=== PATIENT | female | born 1930 | race Caucasian/White ===

== ENCOUNTER 2017-01-09 14:28 | Inpatient (IN) | payer MEDICARE, OTHER ==
--- NOTE | ~2017-01-09 | OR ---
Unit #: [id number] #: [id number] Patient: CHUCKIE VICTORIA [id number] [address] [place], [place] [address] [id number] I MR#: [id number] NAME: CHUCKIE VICTORIA ROOM: [facility] Date of Procedure: 01/12/2017 Admission Date: 01/09/2017 Surgeon: Reinier Calderon M.D. : 1930 Attending Physician: Du Salazar M.D. OPERATIVE REPORT PREOPERATIVE DIAGNOSIS Need for nutritional support. POSTOPERATIVE DIAGNOSIS Need for nutritional support. PROCEDURE PERFORMED 1. Esophagogastroduodenoscopy. 2. Placement of percutaneous endoscopic gastrostomy tube. ANESTHESIA Monitored anesthesia care. FINDINGS The PEG was placed in good position. A small hiatal hernia was seen. SPECIMEN SENT TO PATH None. COMPLICATIONS None apparent. CONDITION The patient tolerated the procedure well. INDICATIONS FOR PROCEDURE The patient is an 86-year-old white female with dementia and sepsis, who presents at this time with the need for nutritional support and bypass feeds. DESCRIPTION OF PROCEDURE After obtaining informed consent from the patient's son and niece with all risks and benefits were fully explained to the patient's family in detail. The patient who was on scheduled antibiotics had monitored anesthesia care obtained. The endoscope was placed through the mouth into the upper esophagus under direct vision. It was advanced to the second portion of the duodenum without difficulty with the lumen always in view. The duodenum was normal as was the duodenal bulb. The pylorus opened normally. There was some mild gastritis in the distal stomach. On retroflexion back to the GE junction, there was a small to medium size hiatal hernia. No other abnormalities were seen. The light of the scope Unit #: [id number] #: [id number] Patient: CHUCKIE VICTORIA was easily seen in the epigastric area. On palpation of that area, the digital depression was seen easily within the gastric lumen. The area that was chosen where the abdominal wall and gastric wall were touching, was prepped in a sterile fashion. It was then anesthetized with 1% Xylocaine plain local anesthesia. A small stab incision was made with a knife and a 16-gauge thin-walled needle was placed through the abdominal wall and the gastric wall into the gastric lumen. A guidewire was threaded and was grasped with snare and pulled out through the mouth with the endoscope. The PEG tube was placed over the guidewire and passed down over the guidewire and out through the abdominal wall and pulled up until the internal bolster mendez against the gastric mucosa. An external bolster was placed as well. The endoscope was placed back down into the upper esophagus under direct vision and advanced this into the stomach. The PEG was in good position. There was good hemostasis. The external bolster was placed, there was approximately a quarter inch to half inch of slack between the two, so there would not be ischemic necrosis. On pulling back above the GE junction, there was no abnormality seen at the GE junction, and the remaining portion of the esophagus was within normal limits. Laryngeal structures were not well visualized from above. The patient tolerated the procedure well. Antibiotic ointment was placed around the PEG site, dry dressing, and an abdominal binder. Dictated by... Kai Lim/ulises TD: 01/13/2017 02:50 JOB #: [id number] CC: [facility] OPERATIVE REPORT X Reinier Calderon MD X PROCEDURE OPERATIVE NOTE
--- NOTE | ~2017-01-09 | CR72 ---
[facility] A Service of [facility] & [facility] RADIOLOGY TEXT RESULTS PATIENT: CHUCKIE VICTORIA [facility]-20 : 31 UNIT #: [id number] AGE: [address]: ESTELA PAREKH MD SEX: F ORDER DR: [id number] [facility] [address] [place], [place] [address] [id number] I MR#: [id number] Acc #: [id number] NAME: CHUCKIE VICTORIA : 1930 SEX: F STUDY DATE/TIME: 01/09/2017 14:54 UNIT: CEDOF ROOM: 71189 STUDY DESCRIPTION: CR Chest Single View Portable Attending Physician: Estela Parekh M.D. Ordering Physician: Osman Young D.O. Primary Care Physician: Primary Care Physician No MEDICAL IMAGING REPORT This report is preliminary unless electronic signature is present EXAM Portable chest HISTORY Pneumonia and shortness of air and cough today. FINDINGS The cardiac size and pulmonary vascularity are normal. No infiltrates or effusions. Low lung volumes. Multiple surgical clips in the upper abdomen. Small, calcified mediastinal nodes. IMPRESSION No acute findings and no active disease. Dictated by... Santos Valverde M.D. THIS IS AN ELECTRONICALLY VERIFIED REPORT Santos Valverde M.D. at 01/09/2017 10:50 PM DFL/psc TD: 01/09/2017 20:28 JOB #: [id number] MEDICAL IMAGING REPORT COPY
--- NOTE | ~2017-01-09 | CR72 ---
[facility] A Service of [facility] & [facility] RADIOLOGY TEXT RESULTS PATIENT: CHUCKIE VICTORIA LOCATION: [address]-20 : 31 UNIT #: [id number] AGE: [address]: Du Salazar MD SEX: F ORDER DR: [id number] [facility] [address] [place], [place] [address] [id number] I MR#: [id number] Acc #: [id number] NAME: CHUCKIE VICTORIA : 1930 SEX: F STUDY DATE/TIME: 01/10/2017 4:05 UNIT: [facility] ROOM: [facility] STUDY DESCRIPTION: CR Chest Single View Portable Attending Physician: Sunni Parekh M.D. Ordering Physician: Jessica Quinonez M.D. Primary Care Physician: Primary Care Physician No MEDICAL IMAGING REPORT This report is preliminary unless electronic signature is present EXAM Portable chest 01/10/2017 HISTORY Chest pain, hypotension, hypothermia, sepsis and pneumonia. Symptoms since 01/09/2017. Benign essential hypertension. FINDINGS The heart is enlarged but stable compared with 01/09/2017. There is poor inspiratory result with bibasilar atelectasis. There are no pleural effusions. No pneumothorax. Numerous surgical clips are seen in the upper abdomen. IMPRESSION No active pulmonary disease. Dictated by... Gil Caputo M.D. THIS IS AN ELECTRONICALLY VERIFIED REPORT Gil Caputo M.D. at 01/10/2017 10:17 PM LEVI/monika TD: 01/10/2017 06:32 JOB #: [id number] MEDICAL IMAGING REPORT COPY
--- NOTE | ~2017-01-09 | US140 ---
[facility] A Service of [facility] & [facility] RADIOLOGY TEXT RESULTS PATIENT: CHUCKIE VICTORIA LOCATION: [facility] 324-01 : 31 UNIT #: [id number] AGE: [address]: Du Salazar MD SEX: F ORDER DR: [id number] [facility] [address] [place], [place] [address] [id number] I MR#: [id number] Acc #: [id number] NAME: CHUCKIE VICTORIA : 1930 SEX: F STUDY DATE/TIME: 01/16/2017 14:08 UNIT: [address] ROOM: [facility] STUDY DESCRIPTION: US UE Veins Unilat or Ltd Stdy Attending Physician: Du Salazar M.D. Ordering Physician: Du Salazar M.D. Primary Care Physician: Primary Care Physician No MEDICAL IMAGING REPORT This report is preliminary unless electronic signature is present EXAM Right upper extremity venous Doppler. INDICATIONS Right upper extremity edema for 3 days. TECHNIQUE Zavala-scale, color Doppler and spectral Doppler waveform analysis was performed through the right upper extremity. FINDINGS The examination is negative. There is no evidence of deep venous thrombus within the right internal jugular vein, subclavian vein, axillary vein or brachial veins. No superficial venous thrombus is seen within the cephalic or basilic veins. IMPRESSION Negative examination. No evidence of right upper extremity venous thrombosis. Dictated by... Neha Barragan M.D. THIS IS AN ELECTRONICALLY VERIFIED REPORT Neha Barragan M.D. at 01/17/2017 5:03 PM AFF/psc TD: 01/16/2017 20:03 JOB #: [id number] MEDICAL IMAGING REPORT COPY
--- NOTE | ~2017-01-09 | CO ---
Unit #: [id number] #: [id number] Patient: CHUCKIE GARCIA [id number] [place], [place] [address] [id number] I MR#: [id number] NAME: CHUCKIE GARCIA ROOM: CIC3 Age: 86 Sex: F Admission Date: 01/09/2017 : 1930 Attending Physician: Du Salazar M.D. Consultation Date: 01/14/2017 CONSULTATION REPORT REASON FOR CONSULTATION Precipitous drop in hemoglobin without cause. HISTORY OF PRESENT ILLNESS Ms. Garcia is an 86-year-old white female. The patient has been transferred from alf. At the present time, she is unresponsive and had a PEG tube placed the day before yesterday which is being utilized for PEG feeds. The patient has had no history of overt GI bleed. In fact, she was admitted to the hospital 5 days ago with low blood pressure. She has multiple medical problems as enumerated under the past medical history. The most significant finding on her admission was a BUN and creatinine of 143 and 6.4. The patient since then been given IV fluids and antibiotics and has been hemodiluted and the hemoglobin drop is most likely of hemodilution. No history is available from the patient. Most of the history is dark records, were reviewed from the chart. Even at her best days, she is very minimally responsive according to her niece. PAST MEDICAL HISTORY Significant for history of dementia, hemorrhagic left thalamic stroke, hypertension, depression, poor mobility. PAST SURGICAL HISTORY Included right nephrectomy. ALLERGIES None. HOME MEDICATIONS Include lisinopril, aspirin, Micro-K, Bumex, Nexium, Claritin, Tylenol, and Cymbalta. In the hospital, she has been placed on antibiotics. FAMILY HISTORY Significant for stroke. SOCIAL HISTORY Remote history of smoking. Does not drink alcohol. Resides at alf for the last 7 years and has no mobility. REVIEW OF SYSTEMS Review of organ systems is not possible due to the fact the patient is unresponsive. PHYSICAL EXAMINATION Unit #: [id number] #: [id number] Patient: CHUCKIE GARCIA GENERAL: She is asleep and clearly unresponsive. VITAL SIGNS: She is having spontaneous breathing with a temperature of 99.4, pulse is 90 per minute and regular, respirations is 23, blood pressure is 99/44. HEENT: She has mild pallor. There being no icterus, lymphadenopathy, or peripheral edema. CARDIOVASCULAR: Normal heart sounds. No murmurs on auscultation. LUNGS: Normal breath sounds. Good air entry. ABDOMEN: Soft and nontender. Liver and spleen are not palpable. Bowel sounds normal. DIAGNOSTIC STUDIES LABORATORY RESULTS: Shows an admission BUN and creatinine of 143 and 6.4 and it is now 24 and 1.8. Admission hemoglobin was 10.9 and it was 6.7, posttransfusion hemoglobin is now 9.5. CLINICAL IMPRESSION 1. The most likely etiology of patient's drop in hemoglobin is hemodilution as she was severely hemoconcentrated upon admission. 2. Unlikely to have gastrointestinal bleed. There is no clinical gastrointestinal bleed; however, the patient does have a clinical gastrointestinal bleed or there is a drop in hemoglobin further after initial resuscitation, transfusion, then an upper endoscopy is reasonable; however, I would rather monitor hemoglobin for the next 12 to 24 hours. 3. Background history of dementia, immobility. It is noteworthy that the patient is also DNR. Thank you for asking me to see Ms. Garcia. I appreciate the consult. Dictated by... Kai Dillard/ulises TD: 01/14/2017 17:36 JOB #: [id number] CC: Eddie Escobedo M.D. CONSULTATION REPORT X Ezra Soto MD X CONSULTATION REPORT
--- NOTE | ~2017-01-09 | HP ---
Unit #: [id number] #: [id number] Patient: CHUCKIE VICTORIA [id number] [facility]. [place], [place] [address] [id number] MR#: [id number] NAME: CHUCKIE VICTORIA ROOM: Age: 86 Sex: F Admission Date: 01/09/2017 : 1930 Attending Physician: Osman Young D.O. Primary Care Physician: No Primary Care Physician HISTORY AND PHYSICAL CHIEF COMPLAINT Low blood pressure. HISTORY OF PRESENT ILLNESS The patient is an 86-year-old female with a history of depression, hypertension, dementia and hemorrhagic left thalamic CVA, brought to the emergency room from the [facility]. The patient is lethargic and minimally responsive, unable to provide any history and the history is obtained by reviewing the records and speaking to the ER physician. The patient has been recently diagnosed with the pneumonia and was started on the antibiotic with Augmentin. This morning the patient was found to be hypotensive and brought to the emergency room. The patient's blood pressure at the time of arrival was systolic in the range of 83s and patient was found to be hypothermic with a temperature of 95.1. The patient had blood work that showed the patient is severely dehydrated with a sodium of 167 and the potassium of 6.2 and creatinine of 8.7 and lactate of 3.6. The patient is being admitted for the above reasons. The patient has been made DNR recently and the family is not ready for the palliative care as per the records. The patient is very minimally responsive and unable to provide any history and the family member, niece, is present at the bedside and she has seen the patient last time a month ago and at that time patient was more responsive, per niece. PAST MEDICAL HISTORY History of dementia, hypertension, depression. PAST SURGICAL HISTORY History of a right nephrectomy. ALLERGIES None. HOME MEDICATIONS From the records she is on lisinopril, aspirin, Micro-K, Bumex, Nexium, Claritin and mirtazapine, Tylenol, Cymbalta. FAMILY HISTORY Positive for CVA. SOCIAL HISTORY The patient has a remote history of smoking, does not drink alcohol or any illicit drug abuse, resident of the [facility] for the last six or seven years. Unit #: [id number] #: [id number] Patient: CHUCKIE VICTORIA REVIEW OF SYMPTOMS Unable to obtain. PHYSICAL EXAMINATION GENERAL APPEARANCE: On examination the patient is minimally responsive. VITAL SIGNS: Temperature is 95.1, pulse 75, respiratory rate 26, blood pressure 85/53, sating 96% at 2 L. HEENT: Head atraumatic, normocephalic. Pupils equal, round and reacting to light and accommodation. Positive for pallor and the dry mucous membranes. Patient was unable to open the mouth. Not following commands. LUNGS: Decreased air entry at the bases. HEART: Regular rhythm and tachycardic. ABDOMEN: Soft, positive bowel sounds. EXTREMITIES: Patient has cyanotic toes and the cyanotic fingers. NEUROLOGIC: Lethargic, minimally responsive. PSYCHIATRIC: Unable to assess. DIAGNOSTIC STUDIES LABORATORY DATA: pH 7.36, pCO2 of 33, pO2 61, bicarbonate 19.2 and oxygen saturation 89.8. Glucose 173, BUN 204, creatinine 8.7, sodium 167, potassium 6.2, chloride 127, bicarbonate 20, albumin 3, direct bilirubin 0.4, AST 149, ALT 74, alkaline phosphatase 118, lactic acid is 3.6, INR is 1.3, troponin less than 0.05, WBC 12.9, hemoglobin 10.9, hematocrit 35.4, platelets 157, neutrophils 85.6 and bandemia of 18%. Flu screen is negative and UA is unable to be done. IMAGING: The chest x-ray shows no acute abnormalities. The CT of the head shows no acute abnormality and the complete opacification of the frontal sinus concerning for the sinusitis. CT of the abdomen and pelvis shows bilateral lower lobe infiltrate and the right nephrectomy and no acute (1) findings. CARDIOVASCULAR: The EKG shows normal sinus rhythm at a rate of 78 beats per minute and the nonspecific ST and T changes and QTc of 435. ASSESSMENT 1. Severe sepsis. 2. Acute kidney injury. 3. Hyperkalemia. 4. Hypernatremia. 5. Bilateral pneumonia. PLAN Plan is to admit the patient to the inpatient in the ICU. Patient will be continued with the severe sepsis protocol and will have the renal consult with Dr. Lozoya and critical care consult with Dr. Quinonez and patient will be on Levophed for the blood pressure support and repeat the labs again and patient will be on D5W at 75 mL per hour or as per the renal total body water deficit and the patient's son, who is POA, wanted all medical things, no dialysis, no intubations and wanted the medical treatment. Patient is a DNR and further recommendations will follow as more lab results are available. Unit #: [id number] #: [id number] Patient: CHUCKIE VICTORIA Dictated by Kai Andres TD: 01/09/2017 16:12 JOB #: [id number] HISTORY AND PHYSICAL X X HISTORY AND PHYSICAL
--- NOTE | ~2017-01-09 | DS ---
Unit #: [id number] #: [id number] Patient: CHUCKIE VICTORIA [id number] [facility] [place] [facility]. [place], [place] [address] [id number] I MR#: [id number] NAME: CHUCKIE VICTORIA ROOM: 324 Age: 86 Sex: F Admission Date: 01/09/2017 : 1930 Discharge Date: Attending Physician: Du Salazar M.D. Primary Care Physician: Primary Care Physician No DISCHARGE SUMMARY CONSULTANTS Dr. Brianne Lozoya, Dr. Quinonez, Dr. Calderon. PROCEDURES DONE PEG tube placement. ADMITTING DIAGNOSES Sepsis with shock, acute kidney injury, hypernatremia, hyperkalemia, bilateral pneumonias. DISCHARGE DIAGNOSES Sepsis with shock, acute kidney injury, hypernatremia, hyperkalemia, bilateral pneumonias, along with malnutrition, history of dementia, history of left hemorrhagic stroke in the past with inability to talk. HISTORY OF PRESENTING ILLNESS The patient is an 86-year-old pleasant lady, who is a resident of [facility], was transferred on 01/09/2017 because of hypotension. She was getting treated for pneumonia prior to hospitalization. In the initial evaluation, she was hypothermic with temperature of 95.1, hypotensive, she was started on fluids and pressors and admitted to the ICU. The blood work showed an acute kidney injury with a BUN high up to 204 and creatinine up to 8.7. Her sodium was elevated into 160s. Apparently, her oral intake was poor. HOSPITAL COURSE She was admitted in the ICU. She is still on pressors at this point for the hypotension and she is getting monitored. Acute kidney injury improved with IV fluids and supportive care. The last BUN and creatinine are 33 and 2.1. Nephrology, Dr. Lozoya is following her for the acute kidney injury. Her sodium also improved, possibly all because of poor oral intake. She is unable to swallow. She got a PEG tube placed on 01/12/2017 by [facility], Dr. Calderon and associates. She will be started on PEG feeds. For sepsis, jauregui-cultures were sent. Cultures came back negative. Her chest x-ray is looking clear. She was initially on vancomycin and broad-spectrum antimicrobials, which were deescalated to Rocephin. We will continue the antimicrobials and monitor. She also developed thrombocytopenia in the hospital course possibly concerned for drug induced. She dropped her hemoglobin from the initial admission. In the initial Unit #: [id number] #: [id number] Patient: CHUCKIE VICTORIA admission, her hemoglobin was around 10.9 and today it dropped down to 6.7. Her stool for occult blood is negative concern for possible dilutional versus secondary to CKD. She will be transfused 2 units of PRBC today. I spoke with the patient's daughter this morning. She wants her to be transferred to [place] once she is stable. She wants everything to be done. Kindly note, her code status is do not resuscitate. Final discharge summary will be dictated by me or my colleagues at the time of actual discharge. Dictated by... Du Salazar M.D. Cata TD: 01/16/2017 00:29 JOB #: [id number] DISCHARGE SUMMARY X X DISCHARGE SUMMARY
--- NOTE | ~2017-01-09 | US77 ---
[facility] A Service of [facility] & [facility] RADIOLOGY TEXT RESULTS PATIENT: CHUCKIE VICTORIA [address] UNIT #: [id number] AGE: [address]: Du Salazar MD SEX: F ORDER DR: [id number] [facility] [address] [place], [place] [address] [id number] I MR#: [id number] Acc #: [id number] NAME: CHUCKIE VICTORIA : 1930 SEX: F STUDY DATE/TIME: 01/09/2017 17:55 UNIT: CICCU3 ROOM: [facility] STUDY DESCRIPTION: US Kidney Bilateral Complete Attending Physician: Sunni Parekh M.D. Ordering Physician: Brianne Lozoya M.D. Primary Care Physician: Primary Care Physician No MEDICAL IMAGING REPORT This report is preliminary unless electronic signature is present EXAM Bilateral renal ultrasound, 01/09/2017 HISTORY Pain. Low blood pressure. Weakness. Pain since today. Per family members right nephrectomy approximately 17 years ago. BUN 204, creatinine 8.7, eGFR 4.6. FINDINGS Real-time ultrasonography performed. Comparison to CT examination 01/09/2017. Patient is status post right nephrectomy. No abnormal soft tissue in the right nephrectomy bed. Visualized liver shows no focal abnormality. Raines catheter in urinary bladder with bladder decompression. The left kidney measures 10.43 cm in greatest length. No hydronephrosis or nephrolithiasis. No cystic or solid mass lesion and no perinephric fluid collection. IMPRESSION 1. Status post right nephrectomy. No abnormal soft tissue seen in the right renal bed. 2. The left kidney shows no evidence of obstruction. No perinephric fluid collection, cystic or solid mass lesion. 3. Raines catheter in urinary bladder. Bladder is decompressed. Dictated by... Uday Kaminski M.D. THIS IS AN ELECTRONICALLY VERIFIED REPORT Uday Kaminski M.D. at 01/11/2017 4:30 PM KIMBERLY/alvarez TD: 01/09/2017 23:47 [facility] A Service of [facility] & [facility] RADIOLOGY TEXT RESULTS PATIENT: CHUCKIE VICTORIA LOCATION: [facility]3-20 : 31 UNIT #: [id number] AGE: [address]: Du Salazar MD SEX: F ORDER DR: JOB #: [id number] MEDICAL IMAGING REPORT COPY
--- NOTE | ~2017-01-09 | DS ---
Unit #: [id number] #: [id number] Patient: CHUCKIE VICTORIA [id number] [place], [place] [address] [id number] I MR#: [id number] NAME: CHUCKIE VICTORIA ROOM: 324 Age: 86 Sex: F Admission Date: 01/09/2017 : 1930 Discharge Date: Attending Physician: Du Salazar M.D. Primary Care Physician: No Primary Care Physician DISCHARGE SUMMARY ADDENDUM Kindly note, there is a discharge summary dictated by me on the and this is an addendum to the discharge summary. In the last four days, a few things happened. First thing, she is done with antimicrobials. Her antimicrobials were stopped. Hem/onc was consulted for thrombocytopenia. They recommended no further workup. GI was consulted for anemia. The anemia was thought to be secondary to hemodilution. There are no OP positive stools and no further workup was planned. She was doing clinically stable. Her renal function has improved. She was moved out of the ICU. I spoke with her niece who is at bedside for prolonged time. We tried to reach her son on the phone and left a message. I gave the patient's niece my cell phone number and asked them to call me if there are questions or concerns. Discussed with the high risk case manager and she does have a bed with rehab and she will be discharged to the rehab. PHYSICAL EXAMINATION On the day of the discharge, her physical examination: VITAL SIGNS: Temperature 97.8, pulse rate 86, respiratory rate 17, blood pressure 122/52. GENERAL: The patient is alert, nonverbal, lying in the bed in no acute distress. HEENT: Normocephalic and atraumatic. No icterus. CHEST: Bilateral equal air entry. Minimal rhonchi. HEART: S1, S2. Regular rate and rhythm. ABDOMEN: Soft, nontender. EXTREMITIES: No edema. Normal pulses. DISCHARGE MEDICATIONS 1. Tylenol p.r.n. 2. NovoLog insulin sliding scale. 3. Aspirin 81 mg per PEG. 4. Protonix 40 mg per PEG daily. 5. Diflucan 100 mg per PEG until January 20, 2017. Kindly note, we kept all her blood pressure medications on hold as well as her psychiatric medications on hold secondary to her hypotension and altered mental status. I spoke with high risk case manager. They will arrange for transportation today. Total time spent in her care, 35 minutes. Unit #: [id number] #: [id number] Patient: CHUCKIE VICTORIA Dictated by..Kai Powers TD: 01/16/2017 12:59 JOB #: [id number] DISCHARGE SUMMARY X X DISCHARGE SUMMARY
--- NOTE | ~2017-01-09 | FU ---
[facility] Nutrition Therapy DATE: 01/13/17 Patient: CHUCKIE HILL Physician: TOMEKA Address: [facility] Room/Bed: [address], Zip: [place] [address] Admit Date: 01/09/17 Date of : 31 Height: 5 5 Weight: 146 66.5 NUTRITION MONITORING/FOLLOW-UP: Reason: FOLLOW UP Anthropometrics: Ht: 65" Wt: 56 kg BMI: 20 Wt 01/13: 66.5 kg Labs: K+ 3.4 Cl- 116 Gluc 183 BUN 33 Creat 2.1 Ca++ 6.9 Alb 1.8 AST 43 Accuchecks 104-192 GFR 23.8 Meds: Novolog, NaCl I&O's: 4203/1435, last BM 01/13, FMS Skin: no changes noted Edema:1+ generalized Estimated Nutrition Needs: 2774-2851 kcals (25-30 kcals/kg) 56-73 grams protein (1.0-1.3 grams/kg) Assessment: Chart reviewed, events noted. Pt had PEG placed yesterday, remains in ICU. RN reports enteral nutrition to be started today per MD orders/ RD recommendations with Jevity 1.5 @ 20 mL/hr, increasing by 10 mL q 6 hrs as tolerated to 45 mL/hr. No major changes noted, RN reports the pt is likely to transfer out of ICU. Dx: Inadequate oral intake RT clinical condition AEB need for EN. Intervention: 1. Jevity 1.5 Monitoring, Evaluation and Goals: 1. Enteral nutrition; provide >80% goal volume x 24 hrs 2. Labs; WNL 3. Weight; prevent weight loss 4. Skin; prevent breakdown Recommendations: 1. Start Jevity 1.5 per MD orders/ RD recommendations advancing to goal rate of 45 ml/hr as tolerated. [facility] Nutrition Therapy DATE: 01/13/17 Patient: CHUCKIE VICTORIA Physician: TOMEKA Address: [facility] Room/Bed: [address], Zip: [place] [address] Admit Date: 01/09/17 Date of : 31 Height: 5 5 Weight: 146 66.5 2. Ensure HOB is upright at minimum 40 degrees during EN administration. 3. 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 Status: Pt is at mild-moderate nutritional risk. RD will follow hospital course . Respectfully, MARTA DUFFY RD, LD [employer] [facility] [place] [facility] cc: client file
--- NOTE | ~2017-01-09 | CT71 ---
[facility] A Service of [facility] & [facility] RADIOLOGY TEXT RESULTS PATIENT: CHUCKIE VICTORIA LOCATION: CICCU3 CICCU3-20 : 31 UNIT #: [id number] AGE: [address]: Du Salazar MD SEX: F ORDER DR: [id number] [facility] [address] [place], [place] [address] [id number] I MR#: [id number] Acc #: [id number] NAME: CHUCKIE VICTORIA : 1930 SEX: F STUDY DATE/TIME: 01/09/2017 15:23 UNIT: CEDOF ROOM: [id number] STUDY DESCRIPTION: CT Head Wo Contrast Attending Physician: Sunni Parekh M.D. Ordering Physician: Osman Young D.O. Primary Care Physician: Primary Care Physician No MEDICAL IMAGING REPORT This report is preliminary unless electronic signature is present EXAM CT head 01/09/2017 HISTORY Low back pain and weakness started today. shelter reports recent diagnosis of pneumonia. TECHNIQUE This CT exam was performed with one or more of the following radiation dose reduction techniques: Automatic exposure control, adjustment of mA and/or kV according to patient size, and iterative reconstruction. CT head performed skull base through vertex without intravenous contrast. Comparison 09/21/2009. FINDINGS The brainstem is unremarkable. Cerebellum and cerebral hemispheres show overall preservation of kc matter-white matter differentiation. No hemorrhage. No evidence of acute cortical ischemia. The midline structures are nondisplaced. No acute-appearing basal ganglia abnormality. Small, chronic lacunar infarct in the body of the right caudate nucleus. Extensive periventricular and deep white matter tract hypodensities bilaterally as well as extensive subcortical white matter hypodensities bilaterally. Appearance is relatively symmetric and favored to reflect sequelae of chronic microvascular ischemia. Ventricles, cisterns and sulci show moderate to marked generalized enlargement consistent with generalized atrophy. No intra- or extraaxial mass effect or abnormal intracranial fluid collection. The intraorbital soft tissues are unremarkable. Mucosal thickening in the left frontal sinus. Complete opacification of the right frontal sinus. Frontal sinus disease significantly increased from prior study. Evidence of extensive prior ethmoid, sphenoid and maxillary sinus intervention. Mucosal thickening in the right maxillary sinus. The mastoid air cells are clear. No clearly STS. [facility] A Service of [facility] RADIOLOGY TEXT RESULTS PATIENT: CHUCKIE VICTORIA LOCATION: CICCU3 CICCU3-20 : 31 UNIT #: [id number] AGE: [address]: Du Salazar MD SEX: F ORDER DR: acute bony abnormality. IMPRESSION 1. No clearly acute abnormality within the brain. If patient has ongoing neurologic symptoms, consider follow up imaging, preferably with MRI if patient is a candidate. 2. Extensive subcortical, periventricular and deep white matter tract hypodensities bilaterally most consistent with sequelae of chronic microvascular ischemia. 3. Moderate generalized atrophy. 4. Extensive vascular calcification. 5. Complete opacification right frontal sinus, with extensive mucosal thickening in the left frontal sinus. These findings are significantly more pronounced than in 2009 and may reflect components of acute frontal sinusitis. Patient has undergone extensive ethmoid, maxillary and sphenoid sinus surgery. Mucosal thickening in the residual right maxillary sinus but no associated air-fluid level. Dictated by... Uday Kaminski M.D. THIS IS AN ELECTRONICALLY VERIFIED REPORT Uday Kaminski M.D. at 01/11/2017 4:30 PM Sharla TD: 01/09/2017 20:34 JOB #: [id number] MEDICAL IMAGING REPORT COPY
--- NOTE | ~2017-01-09 | CO ---
Unit #: [id number] #: [id number] Patient: CHUCKIE VICTORIA [id number] [address] [address] [id number] I MR#: [id number] NAME: CHUCKIE VICTORIA ROOM: 20133 Age: 86 Sex: F Admission Date: 01/09/2017 : 1930 Attending Physician: Sunni aPrekh M.D. Primary Care Physician: Primary Care Physician No CONSULTATION REPORT REASON FOR CONSULTATION Critical care management. CHIEF COMPLAINT Generalized weakness and cough. HISTORY OF PRESENT ILLNESS Patient was diagnosed with pneumonia and she was under palliative care and the family changed her to acute care and patient was brought to the emergency room and was found to be in acute renal failure and currently on oxygen and being given IV fluid and IV antibiotics. I am seeing her at the bedside. She is confused. REVIEW OF SYSTEMS Unobtainable. PAST MEDICAL HISTORY 1. Dementia. 2. Hypertension. 3. Depression. PAST SURGICAL HISTORY Nephrectomy. HOME MEDICATIONS 1. Lisinopril. 2. Aspirin. 3. Micro-K. 4. Bumex. 5. Nexium. 6. Claritin. 7. Mirtazapine. 8. Tylenol. 9. Cymbalta. ALLERGIES None. SOCIAL HISTORY Ex-smoker. No alcohol, no drug abuse. FAMILY HISTORY Positive for CVA. Unit #: [id number] #: [id number] Patient: CHUCKIE VICTORIA PHYSICAL EXAMINATION VITAL SIGNS: Temperature 96, pulse 83, respirations 16, blood pressure 97/52. NEUROLOGIC: Confused. HEART: S1 plus S2. LUNGS: Bilateral air entry, bilateral rhonchi. ABDOMEN: Nontender, soft. Positive bowel sounds. EXTREMITIES: No edema. SKIN: No rashes, no ulcers. LYMPHATIC: No lymphadenopathy. DIAGNOSTIC STUDIES LABORATORY: Reviewed. Blood gas shows pH 7.36, pCO2 of 33, pO2 of 61. BUN 207, creatinine 8.7, potassium 6.2, sodium 167, chloride 127, bicarb 20. INR 1.3. White count 12, hemoglobin 10, hematocrit 35, platelet count 157. IMAGING: Reviewed. ASSESSMENT AND PLAN 1. Hypovolemic septic shock. 2. Likely pneumonia. 3. Severe sepsis. 4. Acute kidney injury. 5. Hypokalemia. 6. Acute renal failure. 7. Leukocytosis. 8. Critically ill patient. 9. Patient is a DO NOT RESUSCITATE. 10. I had a long discussion with the family. PLAN 1. We will start her on IV fluid. 2. Will monitor potassium level. 3. Continue oxygen, bronchodilator, broad-spectrum IV antibiotics. 4. GI and DVT prophylaxis. 5. Patient will be closely monitored. 6. Please see orders for detailed plan. Thank you very much for this consultation. Will continue to monitor the patient. Dictated by... Kai Chaudhari/jung TD: 01/09/2017 19:05 JOB #: [id number] Unit #: [id number] #: [id number] Patient: CHUCKIE VICTORIA CONSULTATION REPORT X Jessica Quinonez MD X CONSULTATION REPORT
--- NOTE | ~2017-01-09 | CR72 ---
[facility] A Service of [facility] & [facility] RADIOLOGY TEXT RESULTS PATIENT: CHUCKIE VICTORIA LOCATION: A 324-01 : 31 UNIT #: [id number] AGE: [address]: Du Salazar MD SEX: F ORDER DR: [id number] [facility] [address] [place], [place] [address] [id number] MR#: [id number] Acc #: [id number] NAME: CHUCKIE VICTORIA : 1930 SEX: F STUDY DATE/TIME: 01/15/2017 04:06 UNIT: [facility] ROOM: [facility] STUDY DESCRIPTION: CR Chest Single View Portable Attending Physician: Du Salazar M.D. Ordering Physician: Jessica Quinonez M.D. Primary Care Physician: Primary Care Physician No MEDICAL IMAGING REPORT This report is preliminary unless electronic signature is present EXAM Portable chest 01/15/2017 04:06 INDICATION Pneumonia, hypotension and hyponatremia. FINDINGS AP portable chest is compared with 01/14/2017. Cardiac and mediastinal contours are stable. Interstitial prominence is again noted and may reflect a mild degree of fibrosis. No new infiltrates are seen and there is no pneumothorax. Dictated by... Chance Quinones Jr., M.D. THIS IS AN ELECTRONICALLY VERIFIED REPORT Chance Quinones Jr., M.D. at 01/15/2017 8:39 PM ANGEL/denny TD: 01/15/2017 11:21 JOB #: [id number] MEDICAL IMAGING REPORT COPY
--- NOTE | ~2017-01-09 | CO ---
Unit #: [id number] #: [id number] Patient: CHUCKIE GARCIA [id number] [address] [place], [place] [address] [id number] I MR#: [id number] NAME: CHUCKIE GARCIA ROOM: CICCU3 Age: 86 Sex: F Admission Date: 01/09/2017 : 1930 Attending Physician: uD Salazar M.D. Primary Care Physician: Primary Care Physician No Consultation Date: 01/09/2017 CONSULTATION REPORT REASON FOR CONSULTATION Renal insufficiency and hyperkalemia. Thank you very much for asking us to see this patient in consultation. HISTORY OF PRESENT ILLNESS Ms. Chuckie Garcia is a 89-year-old, female with a history of CVA, underlying dementia, who presented here with decreased response from [place]. She apparently was treated for some sort of infection with Augmentin started on yesterday, although I am not sure if she got any. Upon presentation here, she was noted to be decreased response, hypotensive, treated with sepsis protocol. The patient's sodium was 167, potassium 6.2, bicarb is 20, BUN of 204 with a creatinine of 8.7, and a glucose of 173. The patient was noted in 09/11 to have a creatinine of 1.4 and in 12/12 creatinine of 1.0. According to the ER physician and talked to the POA and they do not want intubation, dialysis, etc, although just they want medical management. She currently has decreased response and she has a niece by her bed. The patient apparently had one kidney removed many, many, many years ago, but she cannot tell me why or anything else. PAST MEDICAL HISTORY History of CVA in the past; history of dementia; history of hypertension; history of gastroesophageal reflux disease; history of nephrectomy, questionable which one and why; history of depression. ALLERGIES No known drug allergies. SOCIAL HISTORY According to her sheet, previous smoker, none now. No alcohol. Lives in [place]. MEDICATIONS Her medicines there include Prinivil 20 mg a day, Synthroid, Cymbalta. REVIEW OF SYSTEMS Again decreased response, decreased appetite. I cannot really obtain any other. FAMILY HISTORY Noncontributory. PHYSICAL EXAMINATION Unit #: [id number] #: [id number] Patient: CHUCKIE GARCIA GENERAL: Again decreased response, really may be trying to open her eyes, but otherwise cannot get any other response out of her. VITAL SIGNS: She has a T-max of 96.4, pulse 63 to 75, her blood pressure 74 to 103 over 20s to 50s. Her last one was 103/35. HEENT: Pupils appear to be equal and reactive to light, although again unable to determine her extraocular muscles. Her mouth is dry. No erythema. No exudate. NECK: Supple. No adenopathy. CARDIAC: She is without a rub. No S3 or S4. LUNGS: Have few bilateral rhonchi. ABDOMEN: Bowel sounds are positive, appears to be soft, nontender. EXTREMITIES: She has no lower extremity swelling. She apparently had some cyanosis earlier, but has improved. Pulses are intact, but decreased. SKIN: No rashes. NEURO: Again decreased responsiveness. : Raines catheter is in with minimal urine output. DIAGNOSTIC STUDIES LABORATORY RESULTS: Showed a pH of 7.365, pCO2 of 33, pO2 of 62 on 2 L. Sodium is 167, potassium 6.2, chloride is 127, bicarb is 20, BUN of 204, creatinine of 8.7, glucose 173, calcium is 9.5, albumin is 3, AST is 147, lactic acid 3.5, INR is 1.3. Hemoglobin is 10.9, white count 12,900, platelets 157,000 with 11 bands on differential. Her UA shows specific gravity of 1.021, 2+ protein, 25 to 50 rbc's, 50 to 100 wbc's, 1+ bacteria. ASSESSMENT AND PLAN 1. Acute renal failure in the patient with increased BUN and creatinine. Certainly, it could be causing her worsening mental status. However, again no dialysis at this point in time according to the POA. She has received large fluid with her sepsis protocol. We will put her over to D5W at 150 mL an hour for several hours and down to 125. Check a renal ultrasound to make sure she is not obstructed with only history of one kidney, although again not sure why. We will check urine sodium, check BMP later this evening and again in the morning and hopefully, she will respond. The cause of her renal failure is probably related to sepsis as well as hypovolemia. 2. Hyperkalemia secondary to acidosis, renal failure and angiotensin converting enzyme inhibitor. Again, we will recheck later tonight. The patient received an amp of bicarbonate and calcium gluconate in the emergency room. 3. Hyponatremia, severe, increased sodium, most likely related to a combination of hypovolemic hypernatremia as well as free water deficit. Again, we will switch her to D5W now at the rate mentioned above. Check later tonight. Check urine osmolality and urine sodium. I doubt if she has diabetes insipidus. 4. Urinary tract infection and possible sepsis, started on vanc and Zosyn. 5. Underlying dementia. 6. No intubation, no dialysis. Dictated by... Brianne Lozoya M.D. ELA/ulises TD: 01/11/2017 05:46 JOB #: [id number] Unit #: [id number] #: [id number] Patient: CHUCKIE GARCIA CONSULTATION REPORT X Lydia Lozoya MD X CONSULTATION REPORT
--- NOTE | ~2017-01-09 | CO ---
Unit #: [id number] #: [id number] Patient: CHUCKIE GARCIA [id number] [address] [address] [id number] I MR#: [id number] NAME: CHUCKIE GARCIA ROOM: [facility] Age: 86 Sex: F Admission Date: 01/09/2017 : 1930 Attending Physician: Du Salazar M.D. Consultation Date: 01/11/2017 CONSULTATION REPORT REASON FOR CONSULTATION 1. Evaluate for PEG tube placement. 2. Need for nutritional support. Thank you very much for asking us to see Ms. Garcia. HISTORY OF PRESENT ILLNESS She is an 86-year-old white female. She is unable to give any history. She has a history of a CVA and has dementia. Her niece is present at bedside. She was brought from her [facility] to the emergency room and was found to have significant electrolyte abnormalities and possible sepsis. She is unable to take nutrition. We were asked to see her for evaluation for PEG tube placement for nutritional support. PAST MEDICAL HISTORY CVA, dementia, hypertension, GERD, right nephrectomy. ALLERGIES No known medical allergies. MEDICATIONS Please see med rec sheet. SOCIAL HISTORY No tobacco use or alcohol use. REVIEW OF SYSTEMS Unable to be obtained. IMMUNIZATION STATUS Unknown. FAMILY HISTORY Noncontributory. PHYSICAL EXAMINATION GENERAL: Well-developed white female, in no apparent distress. Awake. VITAL SIGNS: Currently, her temperature is 98.9, pulse 91, respirations 18, blood pressure is 105/42. NECK: Supple. No thyromegaly or adenopathy. ABDOMEN: Flat, soft, nondistended. No apparent tenderness. DIAGNOSTIC STUDIES Unit #: [id number] #: [id number] Patient: CHUCKIE GARCIA LABORATORY RESULTS: Reveal the patient to have a glucose of 106, BUN 94, creatinine 4.1, sodium 151, potassium 3.8, chloride 114, CO2 17. PT and PTT on admission was 13.9 and 21.9. White count is 10.5 with hemoglobin 7.9, hematocrit 25.5, platelet count is 105,000. IMAGING STUDIES: CT scan of the abdomen and pelvis reveals a bilateral lower lobe infiltrates or large hiatal hernia. Postop changes of cholecystectomy and right nephrectomy. A solitary hypodense area in the liver 9 mm in size. No acute changes in the abdomen and pelvis. IMPRESSION An 86-year-old female, who requires bypass feeds for nutritional support. We have recommended esophagogastroduodenoscopy and percutaneous endoscopic gastrostomy tube placement. All the risks and benefits have been fully explained to the patient's niece and the patient in detail including the risk of bleeding, infection, inability to place the percutaneous endoscopic gastrostomy tube, possible intraabdominal injury, require exploratory laparotomy, transfer, , and other risks. They also note that the DNR status would need to be rescinded while the percutaneous endoscopic gastrostomy tube is being placed. They understand. We will proceed with scheduling this for tomorrow. Dictated by... Kai Lim/ulises TD: 01/12/2017 00:30 JOB #: [id number] CC: [facility] Brianne Lozoya M.D. CONSULTATION REPORT X Reinier Calderon MD X CONSULTATION REPORT
--- NOTE | ~2017-01-09 | CO ---
Unit #: [id number] #: [id number] Patient: CHUCKIE GARCIA [id number] [facility]. [place], [place] [address] [id number] MR#: [id number] NAME: CHUCKIE GARCIA ROOM: CIC3 Age: 86 Sex: F Admission Date: 01/09/2017 : 1930 Attending Physician: Du Salazar M.D. CONSULTATION REPORT REASON FOR CONSULTATION Thrombocytopenia. HISTORY OF PRESENT ILLNESS Ms. Garcia is a very pleasant 86-year-old lady with multiple medical problems, who was admitted with hypotension. She has previous history of hypertension, dementia, as well as hemorrhagic left thalamic CVA. She was [facility]. She was found to be lethargic, minimally responsive, unable to provide any history. She was previously diagnosed with pneumonia and was started on antibiotic with Augmentin. She was found to be hypothermic, hypotensive, and concerned for sepsis. She was also found to have acute kidney injury with hyperkalemia. She has been admitted to the ICU. According to the family wishes, she has a DNR status as well. The patient is currently being treated with broad-spectrum antibiotics. She is also requiring pressors for hypotension. The patient has received blood transfusion for anemia. She is also found to have thrombocytopenia for which we are being consulted. PAST MEDICAL HISTORY Dementia, hypertension, depression, and stroke. PAST SURGICAL HISTORY Right nephrectomy. ALLERGIES None. HOME MEDICATIONS From the records, she was on lisinopril, aspirin, potassium, Bumex, Nexium, Claritin, mirtazapine, Tylenol, and Cymbalta. FAMILY HISTORY Also positive for CVA. SOCIAL HISTORY The patient has a remote history of smoking. Now does not drink alcohol. She is a resident of [facility] for the last 6 to 7 years. REVIEW OF SYSTEMS The patient is not very responsive. Unable to obtain. PHYSICAL EXAMINATION GENERAL: The patient is minimally responsive. Unit #: [id number] #: [id number] Patient: CHUCKIE GARCIA VITAL SIGNS: Temperature 97, pulse 75, respirations 20, blood pressure 85/53, oxygen saturation is 96% with supplemental oxygen. HEENT: Examination of head, eyes, ears, nose and throat is unremarkable. HEMATOLOGIC/LYMPHATIC: There is no palpable adenopathy in the inguinal, axillary or cervical areas. CARDIOVASCULAR: S1 and S2 regular. Normal rate without any murmurs or gallops. RESPIRATORY: Chest symmetrical, normal, breath sounds equal, bilaterally symmetrical. No rales or rhonchi, and no dullness to percussion. ABDOMEN/GASTROINTESTINAL: Abdomen is soft, nontender, and without palpable masses. No hepatosplenomegaly. EXTREMITIES: Peripheral pulses are normal. There is no edema, cyanosis, clubbing or significant varicosities. NEUROLOGICAL: Patient is alert and oriented x3. Cranial nerves II-XII are grossly intact. Motor strength is 5/5 and equal in all four extremities. Deep tendon reflexes are +2/4 and equal bilaterally. MUSCULOSKELETAL: No evidence of joint swelling, bone tenderness or muscle tenderness is appreciable. SKIN: No lesions or rashes. PSYCHIATRIC: No delusions or hallucinations, no loose associations, no flight of ideas, no tangentiality. Affect is appropriate. No psychomotor slowing or agitation. Eye contact is appropriate. DIAGNOSTIC STUDIES LABORATORY RESULTS: CBC shows now white count of 4.6, hemoglobin 9.5, platelet count 59,000, the patient has received packed RBCs for a hemoglobin, which was 6.7 previously, platelet count has been ranging from 59 to 105,000. Coagulation are normal with normal PT, PTT. No evidence of disseminated intravascular coagulation. ASSESSMENT AND PLAN Ms. Garcia is a very pleasant 86-year-old lady with multiple medical problems, now she is admitted with sepsis most likely related to pneumonia. She is being appropriately managed with IV antibiotics and pressors with some clinical improvement. She has also received packed RBCs for anemia. Currently, her platelet count is low, but adequate. There is no obvious ongoing bleeding. There is no compelling indication for transfusion at this point. This will continue to be monitored and she may require platelet transfusion if there is progressive thrombocytopenia. Dictated by... Tammy Griffin M.D., Ph.D. JANIYA/ulises TD: 01/15/2017 05:18 JOB #: [id number] CONSULTATION REPORT X X CONSULTATION REPORT
--- NOTE | ~2017-01-09 | CT4 ---
[facility] A Service of [facility] & [facility] RADIOLOGY TEXT RESULTS PATIENT: CHUCKIE VICTORIA LOCATION: CICCU3 CICCU3-20 : 31 UNIT #: [id number] AGE: [address]: Du Salazar MD SEX: F ORDER DR: [id number] [facility] [address] [place], [place] [address] [id number] I MR#: [id number] #: [id number] NAME: CHUCKIE VICTORIA : 1930 SEX: F STUDY DATE/TIME: 01/09/2017 15:29 UNIT: CEDOF ROOM: 13434 STUDY DESCRIPTION: CT Abd and Pelv Wo Cont Attending Physician: Sunni Parekh M.D. Ordering Physician: Osman Young D.O. MEDICAL IMAGING REPORT This report is preliminary unless electronic signature is present EXAM CT of the abdomen and pelvis without contrast media HISTORY Hypotension, weakness beginning today recent diagnosis of pneumonia at long-term, previous right nephrectomy. TECHNIQUE Transaxial imaging of the abdomen and pelvis was performed without contrast media. This CT exam was performed with one or more of the following radiation dose reduction techniques: automatic exposure control, adjustment of mA and/or kV according to patient size, and iterative reconstruction. COMPARISON STUDIES The patient has no prior abdominal CTs for comparison. FINDINGS There are bilateral lower lobe infiltrates. Patient has a large hiatal hernia. There are postsurgical changes in the epigastrium. A hypodense lesion is identified in segment 4 of the liver measuring 9 mm in diameter. No other discrete liver lesions are seen. Gallbladder is absent. Spleen is not enlarged. The adrenal glands appear slightly thickened but there is no definitive mass. The pancreas is very atrophic. Multiple surgical clips are identified around the aorta. The patient has undergone a right nephrectomy and presumably partial lymph node dissection. The remaining left kidney is normal in appearance. There are no dilated or thickened loops of bowel in the upper abdomen. Uterus is unremarkable. There are no adnexal masses or fluid collections. There is a Raines catheter in the bladder. There are advanced multilevel degenerative changes in the lumbar spine. There is a compression fracture of the L1 vertebral body. It is STS. [facility] A Service of [facility] & [facility] RADIOLOGY TEXT RESULTS PATIENT: CHUCKIE VCITORIA LOCATION: CICCU3 CICCU3-20 : 31 UNIT #: [id number] AGE: [address]: Du Salazar MD SEX: F ORDER DR: compressed about 70-80% with some retropulsion into the canal. I do not see any clear-cut lytic or blastic lesions. There is osteopenia. CONCLUSION 1. Bilateral lower lobe infiltrates. 2. Large hiatal hernia. 3. Postop changes in the epigastrium, postop changes of cholecystectomy and postop changes of right nephrectomy with lymph node dissection. 4. Solitary hypodense area in segment 4 of the liver measuring 9 mm. Consider either MR or triple phase CT for further characterization if clinically indicated. 5. No acute findings in the abdomen or pelvis. 6. Age-indeterminate compression fracture of L1 with about 80% loss of vertebral body height and mild retropulsion, again this is age indeterminate. MR might prove helpful for further characterization, again if clinically indicated. Dictated by... Uday Tobin M.D. THIS IS AN ELECTRONICALLY VERIFIED REPORT Uday Tobin M.D. at 01/10/2017 7:55 AM VALENTINA/waqas TD: 01/09/2017 21:36 JOB #: [id number] MEDICAL IMAGING REPORT COPY
--- NOTE | ~2017-01-09 | CT57 ---
[facility] A Service of [facility] & [facility] RADIOLOGY TEXT RESULTS PATIENT: CHUCKIE VICTORIA LOCATION: [address]-20 : 31 UNIT #: [id number] AGE: [address]: Du Salazar MD SEX: F ORDER DR: [id number] [facility] [address] [place], [place] [address] [id number] I MR#: [id number] Acc #: [id number] NAME: CHUCKIE VICTORIA : 1930 SEX: F STUDY DATE/TIME: 01/09/2017 19:40 UNIT: [facility] ROOM: [facility] STUDY DESCRIPTION: CT Chest Wo Cont Attending Physician: Sunni Parekh M.D. Ordering Physician: Jessica Quinonez M.D. Primary Care Physician: No Primary Care Physician MEDICAL IMAGING REPORT This report is preliminary unless electronic signature is present EXAM CT chest without contrast HISTORY An 86-year-old woman with weakness and hypotension beginning today. long term reports recent diagnosis was pneumonia and shortness of air. COMPARISON STUDIES CT abdomen 01/09/17, chest x-ray 01/09/17 TECHNIQUE Helical noncontrasted images were obtained from the thoracic inlet through the adrenal glands. Sagittal and coronal reconstructions were performed. No contrast was administered. Total exam DLP 248 mGy/cm. This CT exam was performed with one or more of the following radiation dose reduction techniques: automatic exposure control, adjustment of mA and/or kV according to patient size, and iterative reconstruction. FINDINGS Images through the thoracic inlet demonstrate no thyroid mass or supraclavicular adenopathy. Images through the chest demonstrate a tortuous aorta with calcifications at the aortic valve leaflets. No aneurysms. Pulmonary arteries, cardiac chambers and pericardium are normal. There are surgical clips at the GE junction with a moderate sized hiatal hernia. There is no pericardial or pleural fluid. Lung window images demonstrate dense airspace change, right greater than left lower lobe with air bronchograms on the right. Findings suggest the presence of pneumonia. Atelectasis is possible. Right basilar density is [facility] A Service of [facility] & [facility] RADIOLOGY TEXT RESULTS PATIENT: CHUCKIE VICTORIA LOCATION: [facility]-20 : 31 UNIT #: [id number] AGE: [address]: Du Salazar MD SEX: F ORDER DR: not apparent on the earlier chest film, but is similar to the CT abdomen study at 16:29 hours today. IMPRESSION 1. Right lower lobe greater than left lower lobe airspace changes with air bronchograms highly suspicious for pneumonia. These are not well seen on the earlier portable chest film perhaps due to rotation. The findings appear similar to the lung windows images of the CT abdomen at 15:29 hours today. 2. There is no pleural effusion or adenopathy. Dictated by... Talya Tabares M.D. THIS IS AN ELECTRONICALLY VERIFIED REPORT Talya Tabares M.D. at 01/10/2017 9:25 AM [place] TD: 01/10/2017 00:08 JOB #: [id number] MEDICAL IMAGING REPORT COPY
--- NOTE | ~2017-01-09 | CR72 ---
[facility] A Service of [facility] & [facility] RADIOLOGY TEXT RESULTS PATIENT: CHUCKIE IVCTORIA LOCATION: [address]-20 : 31 UNIT #: [id number] AGE: [address]: Du Salazar MD SEX: F ORDER DR: [id number] [facility] [address] [place], [place] [address] [id number] I MR#: [id number] Acc #: [id number] NAME: CHUCKIE VICTORIA : 1930 SEX: F STUDY DATE/TIME: 01/14/2017 6:02 UNIT: [facility] ROOM: [facility] STUDY DESCRIPTION: CR Chest Single View Portable Attending Physician: Du Salazar M.D. Ordering Physician: Jessica Quinonez M.D. Primary Care Physician: Primary Care Physician No MEDICAL IMAGING REPORT This report is preliminary unless electronic signature is present EXAM Portable chest HISTORY Hypertension, sepsis, pneumonia. COMPARISON 01/10/2017. FINDINGS No invasive tubes or lines identified. No significant change in cardiopulmonary status. Clearly no dense consolidation. Mild diffuse interstitial prominence may represent background fibrosis. No effusions. Heart size within normal limits. Mild aortic atherosclerotic changes. Multiple surgical clips noted in the upper abdomen. Patient has undergone a right distal clavicular resection. No visible pneumothorax. Dictated by... Escobar Ojeda M.D. THIS IS AN ELECTRONICALLY VERIFIED REPORT Escobar Ojeda M.D. at 01/14/2017 3:04 PM ALANIS/denny TD: 01/14/2017 13:39 JOB #: [id number] MEDICAL IMAGING REPORT COPY
--- NOTE | ~2017-01-09 | EKG ---
PATIENT: CHUCKIE VICTORIA UNIT #: [id number] Ventricular Rate: 78 BPM Atrial Rate: 78 BPM P-R Interval: 134 ms QRS Duration: 82 ms Q-T Interval: 382 ms QTC Calculation(Bezet): 435 ms P [place]: 31 degrees Calculated R [place]: 18 degrees Calculated T [place]: 111 degrees Diagnosis Line: Normal sinus rhythm Diagnosis Line: Left ventricular hypertrophy Diagnosis Line: ST and T wave abnormality, consider lateral ischemia Diagnosis Line: Abnormal ECG Diagnosis Line: When compared with ECG of 05-JAN-2011 12:06, Diagnosis Line: No significant change was found Diagnosis Line: Confirmed by ASHOK SUN MD ([id number]) on Diagnosis Line: 01/09/2017 11:06:29 PM INTERPRETING MD: ROXIE
--- NOTE | ~2017-01-09 | A ---
[facility] Nutrition Therapy DATE: 01/10/17 Patient: CHUCKIE VICTORIA Physician: TOMEKA Address: [address] Room/Bed: [address], Zip: [place] [address] Admit Date: 01/09/17 Date of : 32 Height: 5 5 Weight: 123 56 NUTRITIONAL ASSESSMENT: REASON: Consult for EN recs Admitting Dx: 86 y/o female admitted with hypotension, sepsis, PNA from long-term PMH: CVA, dementia, HTN, depression Anthropometrics: Ht: 65", Wt: 56 kg, BMI: 20 Labs: Na 158, Glucose 229, BUN 143, Creat 6.4, AST 135, ALT 72, GFR 6.6 Meds: Zosyn, Vanc, Novolog (low SSI), Levo I/O & Bowel function: LBM unknown Skin Integrity: Redness buttocks, no edema Estimated Nutrition Needs: [phone] kcals per day (25-30 kcals/kg) 45-56 g protein per day (0.8-1.0 g/kg) Fluids consistent with kcal needs or per MD Assessment: Chart reviewed, events noted. Patient on 6L nasal cannula, disoriented, hx dementia, not appropriate for PO diet at this time. RD consulted to provide EN recs, see below. Unable to obtain diet or weight history at this time. 0 points scored on malnutrition risk screen. Dx: Inadequate oral intake r/t clinical condition, mental status AEB need for EN. Intervention: EN recs below Monitoring, Evaluation and Goals: 1. EN consistent with estimated needs. 2. Maintain weight status. 3. Labs WNL. Monitor: Per protocol, criteria to determine if above goals met Recommendations: Once appropriate start enteral nutrition with Jevity 1.5 @ 20 ml/hr and increase by 10 [facility] Nutrition Therapy DATE: 01/10/17 Patient: CHUCKIE VICTORIA Physician: [id number] Address: [address] Room/Bed: [address], Zip: [place] [address] Admit Date: 01/09/17 Date of : 31 Height: 5 5 Weight: 123 56 ml q 6 hours until goal rate of 45 ml/hr is reached, to provide 1620 kcals, 69 g protein and 821 ml water. Once at goal rate flush with 200 ml free water q 4 hrs noting hypernatremia or per MD orders. RD will follow hospital course Moderate nutrition risk Respectfully, Shannon Lux RD, LD [facility] cc: client file
--- NOTE | ~2017-01-09 | EKG ---
PATIENT: CHUCKIE VICTORIA UNIT #: [id number] Ventricular Rate: 165 BPM Atrial Rate: 136 BPM QRS Duration: 84 ms Q-T Interval: 290 ms QTC Calculation(Bezet): 480 ms Calculated R [place]: 2 degrees Calculated T [place]: 168 degrees Diagnosis Line: Atrial fibrillation Diagnosis Line: ST and T wave abnormality, consider lateral ischemia Diagnosis Line: Abnormal ECG Diagnosis Line: When compared with ECG of 09-JAN-2017 13:25, Diagnosis Line: (unconfirmed) Diagnosis Line: Vent. rate has increased BY 87 BPM Diagnosis Line: Non-specific change in ST segment in Inferior Diagnosis Line: leads Diagnosis Line: ST now depressed in Anterolateral leads Diagnosis Line: T wave inversion more evident in Lateral leads Diagnosis Line: Confirmed by ASHOK SUN MD ([id number]) on Diagnosis Line: 01/09/2017 11:10:23 PM INTERPRETING MD: ROXIE
[2017-01-09 13:55] LABS: ARTERIAL BLD GAS O2 SATURATION 89.8 % (90.0-100.0); ARTERIAL BLOOD GAS CARBOXY HB 0.8 %sat (0.0-9.0); ARTERIAL BLOOD GAS HCO3 19.2 mmol/L; ARTERIAL BLOOD GAS MET HB 0.4 %sat (0.0-2.0); ARTERIAL BLOOD GAS PCO2 33.7 mmHg (35.0-45.0); ARTERIAL BLOOD GAS pH 7.365 (7.350-7.450)
[2017-01-09 13:56] LABS: ARTERIAL BLOOD GAS ALLEN TEST Y; ARTERIAL BLOOD GAS ART SITE RIGHT RADIAL; ARTERIAL BLOOD GAS DELIVERY NASAL CANNULA; ARTERIAL BLOOD GAS PO2 61.8 mmHg (80.0-100); ARTERIAL DRAW? YES
[2017-01-09 14:17] LABS: INR 1.3; PARTIAL THROMBOPLASTIN TIME 21.9 SECONDS (23.5-31.3); PROTHROMBIN TIME (PATIENT) 13.9 SECONDS (9.6-11.5)
[~2017-01-09 14:28] MED LIST: ACETAMINOPHEN PO; ACETAMINOPHEN325 MG PO; ACETAMINOPHEN650 M1 PO; ARICEPT PO; ASPIRIN81 M2 PO; BACTRIM DS TABL1 TAB PO; BIOFREEZE118 ML TOP; BISA-LAX10 MG/SUP1 RC; BP MED; BUMEX PO; CERTAGEN PO; CLARITIN10 M2 PO; CYMBALTA PO; DEPAKOTE PO; FEOSOL PO; HYDROCODON-ACE1 EAC5 PO; IMMODIUM PO; KCL PO; LEXAPRO PO; LISINOPRIL PO; LISINOPRIL10 MG PO; LOPRESSOR PO; NORCO 10-325 TA1 TAB PO; PERPHENAZINE8 MG PO; PRILOSEC PO; PRILOSEC40 MG PO; ZOFRAN PO; [UNRECOGNIZED DRUG - OTHER]
[2017-01-09 14:34] LABS: BILIRUBIN, DIRECT 0.4 mg/dL (0.0-0.2); BILIRUBIN,INDIRECT 0.8 mg/dL (0.0-0.9); BILIRUBIN,TOTAL 1.2 mg/dL (0.2-2.0); CALCIUM SERUM 9.5 mg/dL (8.4-10.2); CREATININE SERUM 8.7 mg/dL (0.6-1.4); GLOM FILT RATE Estimated 4.6 mL/min (>60); PROTEIN TOTAL SERUM 8.1 g/dL (6.0-8.3)
[2017-01-09 14:41] LABS: BASOPHIL# 0.1 X10e3 (0-0.3); BASOPHIL% 0.4 % (0-2.5); HEMATOCRIT 35.4 % (35.0-45.0); HEMOGLOBIN 10.9 gm/dL (12.0-16.0); LYMPHOCYTE# 1.4 X10e3 (1.0-3.5); LYMPHOCYTE% 11.1 % (17.0-45.0); MEAN CORPUSCULAR HGB CONC 30.9 g/dL (30-36); MEAN PLATELET VOLUME 12.6 FL (6.5-11.5); MONOCYTE# 0.4 X10e3 (0-1.0); MONOCYTE% 2.9 % (3.0-12.0); NEUTROPHIL% 85.6 % (40-75); PLATELET COUNT 157 X10e3 (140-420); RED BLOOD COUNT 3.21 X10e (3.90-5.30); RED CELL DISTRIBUTION WIDTH 16.4 % (11.0-15.5); WHITE BLOOD COUNT 12.9 X10e3 (4.0-10.5)
[2017-01-09 14:42] LABS: DIFF IND YES
[2017-01-09 14:49] LABS: BUN/CREATININE RATIO 23.44
[2017-01-09 14:50] LABS: POTASSIUM 6.2 mmol/L (3.5-5.1)
[2017-01-09 14:52] LABS: INFLUENZA A NEG (NEG); INFLUENZA B NEG (NEG)
[2017-01-09 14:53] LABS: PLATELET ESTIMATE NORMAL (NORMAL)
[2017-01-09 14:54] LABS: ANISOCYTOSIS SL; POLYCHROMASIA SL
[2017-01-09 16:13] LABS: URINE SOURCE CATH
[2017-01-09 16:23] LABS: URINE APPEARANCE TURBID; URINE BILIRUBIN NEG (NEG); URINE BLOOD 3+ (NEG); URINE COLOR YELLOW; URINE GLUCOSE NEG (NEG); URINE KETONE TRACE (NEG); URINE LEUKOCYTE ESTERASE NEG (NEG); URINE NITRATE NEG (NEG); URINE PROTEIN 2+ (NEG); URINE SPECIFIC GRAVITY 1.021 (1.003-1.035)
[2017-01-09 16:30] LABS: CULTURE INDICATED? YES; URBCS1 AUWI 25-50 /[HPF] (0-2); URINE BACTERIA AUWI 1+ (NEGATIVE); URINE SQUAMOUS EPITHELIAL CELL MOD /[HPF]; UWBCS1 AUWI 50-100 (0-5)
[2017-01-09 16:32] LABS: POC - CKMB 3.3 ng/mL (0.0-7.9); POC - TROPONIN 0.11 ng/mL (<=0.05)
[2017-01-09] MEDS ORDERED: PRINIVIL10 MG PO (17:00)
[2017-01-09] MEDS ORDERED: CYMBALTA30 M1 PO (17:00)
[2017-01-09] MEDS ORDERED: CLARITIN10 M2 PO (17:01)
[2017-01-09] MEDS ORDERED: BAYER CHEWABLE81 MG PO (17:01)
[2017-01-09] MEDS ORDERED: POTASSIUM CHLO10 MEQ PO (17:01)
[2017-01-09] MEDS ORDERED: MIRTAZAPINE7.5 MG PO (17:02)
[2017-01-09] MEDS ORDERED: LOPRESSOR PO (17:02)
[2017-01-09] MEDS ORDERED: TYLENOL325 M1 PO (17:03)
[2017-01-09 17:19] LABS: POC - TROPONIN 0.23 ng/mL (<=0.05)
[2017-01-09 17:39] LABS: SODIUM URINE RANDOM 50 mmol/L
[2017-01-09 17:48] LABS: OSMOLALITY,URINE 487 mOsmo/kg (250-900)
[2017-01-09 21:03] LABS: CREATININE SERUM 7.3 mg/dL (0.6-1.4); GLOM FILT RATE Estimated 5.6 mL/min (>60)
[2017-01-09 21:12] LABS: BUN/CREATININE RATIO 22.32
[2017-01-09 21:14] LABS: POTASSIUM 4.5 mmol/L (3.5-5.1)
[2017-01-10 03:59] LABS: ARTERIAL BLD GAS O2 SATURATION 97.9 % (90.0-100.0); ARTERIAL BLOOD GAS CARBOXY HB 0.8 %sat (0.0-9.0); ARTERIAL BLOOD GAS HCO3 16.5 mmol/L; ARTERIAL BLOOD GAS MET HB 0.7 %sat (0.0-2.0); ARTERIAL BLOOD GAS PCO2 30.2 mmHg (35.0-45.0); ARTERIAL BLOOD GAS pH 7.345 (7.350-7.450)
[2017-01-10 04:25] LABS: ARTERIAL BLOOD GAS ALLEN TEST NORMAL; ARTERIAL BLOOD GAS ART SITE RIGHT RADIAL; ARTERIAL BLOOD GAS DELIVERY NASAL CANNULA; ARTERIAL DRAW? YES
[2017-01-10 04:53] LABS: BASOPHIL% 0.1 % (0-2.5); EOSINOPHIL% 0.1 % (0.0-7.0); HEMATOCRIT 30.1 % (35.0-45.0); HEMOGLOBIN 9.1 gm/dL (12.0-16.0); LYMPHOCYTE# 2.3 X10e3 (1.0-3.5); LYMPHOCYTE% 10.4 % (17.0-45.0); MEAN CELL VOLUME 112.4 FL (83-96); MEAN CORPUSCULAR HEMOGLOBIN 34.1 PG (28-34); MEAN CORPUSCULAR HGB CONC 30.3 g/dL (30-36); MONOCYTE# 0.8 X10e3 (0-1.0); MONOCYTE% 3.8 % (3.0-12.0); NEUTROPHIL# 18.6 X10e3 (1.5-7.1); NEUTROPHIL% 85.6 % (40-75); PLATELET COUNT 188 X10e3 (140-420); RED BLOOD COUNT 2.67 X10e (3.90-5.30); RED CELL DISTRIBUTION WIDTH 16.8 % (11.0-15.5)
[2017-01-10 04:54] LABS: WHITE BLOOD COUNT 21.8 X10e3 (4.0-10.5)
[2017-01-10 04:55] LABS: DIFF IND YES
[2017-01-10 05:24] LABS: ANISOCYTOSIS SL; PLATELET ESTIMATE NORMAL (NORMAL)
[2017-01-10 05:44] LABS: ALBUMIN SERUM 2.2 g/dL (3.5-5.0); BILIRUBIN,TOTAL 0.5 mg/dL (0.2-2.0); CALCIUM SERUM 8.7 mg/dL (8.4-10.2); CREATININE SERUM 6.4 mg/dL (0.6-1.4); GLOM FILT RATE Estimated 6.6 mL/min (>60); MAGNESIUM 2.3 mg/dL (1.6-3.0); PHOSPHOROUS 4.4 mg/dL (2.5-4.6); POTASSIUM 4.6 mmol/L (3.5-5.1); PROTEIN TOTAL SERUM 6.4 g/dL (6.0-8.3)
[2017-01-10 05:57] LABS: BUN/CREATININE RATIO 22.34
[2017-01-10 17:24] LABS: BUN/CREATININE RATIO 23.67; CALCIUM SERUM 7.8 mg/dL (8.4-10.2); CREATININE SERUM 4.9 mg/dL (0.6-1.4); GLOM FILT RATE Estimated 8.9 mL/min (>60); POTASSIUM 3.8 mmol/L (3.5-5.1)
[2017-01-11 05:38] LABS: BASOPHIL% 0.1 % (0-2.5); EOSINOPHIL# 0.2 X10e3 (0-0.7); EOSINOPHIL% 2.3 % (0.0-7.0); HEMATOCRIT 25.5 % (35.0-45.0); HEMOGLOBIN 7.9 gm/dL (12.0-16.0); LYMPHOCYTE# 1.8 X10e3 (1.0-3.5); LYMPHOCYTE% 17.2 % (17.0-45.0); MEAN CORPUSCULAR HEMOGLOBIN 33.6 PG (28-34); MEAN CORPUSCULAR HGB CONC 30.9 g/dL (30-36); MEAN PLATELET VOLUME 11.5 FL (6.5-11.5); MONOCYTE# 0.5 X10e3 (0-1.0); MONOCYTE% 4.8 % (3.0-12.0); NEUTROPHIL% 75.6 % (40-75); PLATELET COUNT 105 X10e3 (140-420); RED BLOOD COUNT 2.35 X10e (3.90-5.30); RED CELL DISTRIBUTION WIDTH 16.1 % (11.0-15.5)
[2017-01-11 05:39] LABS: MEAN CELL VOLUME 108.6 FL (83-96); WHITE BLOOD COUNT 10.5 X10e3 (4.0-10.5)
[2017-01-11 05:40] LABS: BILIRUBIN,TOTAL 0.8 mg/dL (0.2-2.0); BUN/CREATININE RATIO 22.92; CALCIUM SERUM 7.6 mg/dL (8.4-10.2); CREATININE SERUM 4.1 mg/dL (0.6-1.4); MAGNESIUM 1.6 mg/dL (1.6-3.0); PHOSPHOROUS 3.2 mg/dL (2.5-4.6); POTASSIUM 3.8 mmol/L (3.5-5.1); PROTEIN TOTAL SERUM 5.1 g/dL (6.0-8.3)
[2017-01-11 05:41] LABS: DIFF IND YES
[2017-01-11 07:05] LABS: ANISOCYTOSIS SL; NUCLEATED RED BLOOD CELL 1 /100 (0); PLATELET ESTIMATE DECREASED (NORMAL); RBC NORMAL YES
[2017-01-11 07:10] LABS: POLYCHROMASIA SL
[2017-01-11 07:11] LABS: MICROCYTOSIS SL
[2017-01-12 05:33] LABS: BASOPHIL% 0.2 % (0-2.5); EOSINOPHIL# 0.2 X10e3 (0-0.7); EOSINOPHIL% 2.4 % (0.0-7.0); HEMOGLOBIN 7.2 gm/dL (12.0-16.0); LYMPHOCYTE# 1.2 X10e3 (1.0-3.5); LYMPHOCYTE% 14.2 % (17.0-45.0); MEAN CELL VOLUME 106.3 FL (83-96); MEAN CORPUSCULAR HEMOGLOBIN 34.8 PG (28-34); MEAN CORPUSCULAR HGB CONC 32.8 g/dL (30-36); MEAN PLATELET VOLUME 11.3 FL (6.5-11.5); MONOCYTE# 0.4 X10e3 (0-1.0); MONOCYTE% 5.2 % (3.0-12.0); NEUTROPHIL# 6.7 X10e3 (1.5-7.1); RED BLOOD COUNT 2.07 X10e (3.90-5.30); RED CELL DISTRIBUTION WIDTH 15.1 % (11.0-15.5); WHITE BLOOD COUNT 8.6 X10e3 (4.0-10.5)
[2017-01-12 06:15] LABS: BUN/CREATININE RATIO 21.07; CALCIUM SERUM 7.2 mg/dL (8.4-10.2); CREATININE SERUM 2.8 mg/dL (0.6-1.4); GLOM FILT RATE Estimated 17.1 mL/min (>60); MAGNESIUM 1.8 mg/dL (1.6-3.0); PHOSPHOROUS 2.7 mg/dL (2.5-4.6); POTASSIUM 3.1 mmol/L (3.5-5.1)
[2017-01-12 06:51] LABS: PLATELET COUNT 81 X10e3 (140-420)
[2017-01-12 06:52] LABS: DIFF IND NO
[2017-01-12 17:59] LABS: BUN/CREATININE RATIO 18.33; CALCIUM SERUM 6.8 mg/dL (8.4-10.2); CREATININE SERUM 2.4 mg/dL (0.6-1.4); GLOM FILT RATE Estimated 20.4 mL/min (>60); POTASSIUM 3.6 mmol/L (3.5-5.1)
[2017-01-13 05:57] LABS: BASOPHIL% 0.2 % (0-2.5); EOSINOPHIL# 0.1 X10e3 (0-0.7); HEMATOCRIT 20.4 % (35.0-45.0); LYMPHOCYTE# 0.8 X10e3 (1.0-3.5); LYMPHOCYTE% 11.2 % (17.0-45.0); MEAN CELL VOLUME 104.2 FL (83-96); MEAN CORPUSCULAR HEMOGLOBIN 34.3 PG (28-34); MEAN CORPUSCULAR HGB CONC 32.9 g/dL (30-36); MEAN PLATELET VOLUME 11.3 FL (6.5-11.5); MONOCYTE# 0.5 X10e3 (0-1.0); MONOCYTE% 6.8 % (3.0-12.0); NEUTROPHIL# 5.4 X10e3 (1.5-7.1); NEUTROPHIL% 79.8 % (40-75); PLATELET COUNT 72 X10e3 (140-420); RED BLOOD COUNT 1.96 X10e (3.90-5.30); RED CELL DISTRIBUTION WIDTH 14.8 % (11.0-15.5); WHITE BLOOD COUNT 6.8 X10e3 (4.0-10.5)
[2017-01-13 05:59] LABS: HEMOGLOBIN 6.7 gm/dL (12.0-16.0)
[2017-01-13 06:00] LABS: DIFF IND NO
[2017-01-13 06:35] LABS: ALBUMIN SERUM 1.8 g/dL (3.5-5.0); BILIRUBIN,TOTAL 0.6 mg/dL (0.2-2.0); BUN/CREATININE RATIO 15.71; CALCIUM SERUM 6.9 mg/dL (8.4-10.2); CREATININE SERUM 2.1 mg/dL (0.6-1.4); GLOM FILT RATE Estimated 23.8 mL/min (>60); MAGNESIUM 1.7 mg/dL (1.6-3.0); POTASSIUM 3.4 mmol/L (3.5-5.1); PROTEIN TOTAL SERUM 4.7 g/dL (6.0-8.3)
[2017-01-13 20:35] LABS: URINE APPEARANCE CLEAR; URINE BILIRUBIN NEG (NEG); URINE BLOOD 1+ (NEG); URINE COLOR YELLOW; URINE GLUCOSE NEG (NEG); URINE KETONE NEG (NEG); URINE LEUKOCYTE ESTERASE 1+ (NEG); URINE NITRATE NEG (NEG); URINE PROTEIN TRACE (NEG); URINE SPECIFIC GRAVITY 1.018 (1.003-1.035); URINE UROBILINOGEN 0.2 MG/DL (NEG)
[2017-01-13 20:38] LABS: CULTURE INDICATED? YES; URINE BACTERIA AUWI NEG (NEGATIVE); URINE SQUAMOUS EPITHELIAL CELL NONE SEEN /[HPF]
[2017-01-13 20:49] LABS: URINE YEAST PRESENT
[2017-01-14 03:51] LABS: ARTERIAL BLD GAS O2 SATURATION 92.8 % (90.0-100.0); ARTERIAL BLOOD GAS CARBOXY HB 1.5 %sat (0.0-9.0); ARTERIAL BLOOD GAS HCO3 20.3 mmol/L; ARTERIAL BLOOD GAS MET HB 0.9 %sat (0.0-2.0); ARTERIAL BLOOD GAS PCO2 27.9 mmHg (35.0-45.0); ARTERIAL BLOOD GAS pH 7.471 (7.350-7.450)
[2017-01-14 03:55] LABS: ARTERIAL BLOOD GAS DELIVERY ROOM AIR
[2017-01-14 05:39] LABS: BASOPHIL% 0.1 % (0-2.5); EOSINOPHIL# 0.2 X10e3 (0-0.7); EOSINOPHIL% 3.4 % (0.0-7.0); HEMATOCRIT 28.5 % (35.0-45.0); LYMPHOCYTE# 0.5 X10e3 (1.0-3.5); LYMPHOCYTE% 11.5 % (17.0-45.0); MEAN CORPUSCULAR HEMOGLOBIN 31.6 PG (28-34); MEAN CORPUSCULAR HGB CONC 33.3 g/dL (30-36); MEAN PLATELET VOLUME 10.8 FL (6.5-11.5); MONOCYTE# 0.3 X10e3 (0-1.0); MONOCYTE% 6.4 % (3.0-12.0); NEUTROPHIL# 3.6 X10e3 (1.5-7.1); NEUTROPHIL% 78.6 % (40-75); PLATELET COUNT 59 X10e3 (140-420); RED CELL DISTRIBUTION WIDTH 21.5 % (11.0-15.5); WHITE BLOOD COUNT 4.6 X10e3 (4.0-10.5)
[2017-01-14 05:41] LABS: HEMOGLOBIN 9.5 gm/dL (12.0-16.0); MEAN CELL VOLUME 94.9 FL (83-96)
[2017-01-14 05:43] LABS: DIFF IND NO
[2017-01-14 07:18] LABS: ALBUMIN SERUM 1.9 g/dL (3.5-5.0); BILIRUBIN,TOTAL 0.6 mg/dL (0.2-2.0); BUN/CREATININE RATIO 13.33; CALCIUM SERUM 7.5 mg/dL (8.4-10.2); CREATININE SERUM 1.8 mg/dL (0.6-1.4); GLOM FILT RATE Estimated 28.4 mL/min (>60); MAGNESIUM 2.2 mg/dL (1.6-3.0); POTASSIUM 3.8 mmol/L (3.5-5.1); PROTEIN TOTAL SERUM 5.4 g/dL (6.0-8.3)
[2017-01-15 05:28] LABS: BASOPHIL% 0.3 % (0-2.5); DIFF IND NO; EOSINOPHIL# 0.1 X10e3 (0-0.7); EOSINOPHIL% 2.5 % (0.0-7.0); HEMATOCRIT 27.4 % (35.0-45.0); HEMOGLOBIN 8.8 gm/dL (12.0-16.0); LYMPHOCYTE# 0.7 X10e3 (1.0-3.5); LYMPHOCYTE% 13.6 % (17.0-45.0); MEAN CELL VOLUME 96.9 FL (83-96); MEAN CORPUSCULAR HEMOGLOBIN 31.3 PG (28-34); MEAN CORPUSCULAR HGB CONC 32.3 g/dL (30-36); MEAN PLATELET VOLUME 10.3 FL (6.5-11.5); MONOCYTE# 0.3 X10e3 (0-1.0); MONOCYTE% 6.5 % (3.0-12.0); NEUTROPHIL# 3.7 X10e3 (1.5-7.1); NEUTROPHIL% 77.1 % (40-75); PLATELET COUNT 65 X10e3 (140-420); RED BLOOD COUNT 2.82 X10e (3.90-5.30); RED CELL DISTRIBUTION WIDTH 21.1 % (11.0-15.5); WHITE BLOOD COUNT 4.8 X10e3 (4.0-10.5)
[2017-01-15 06:54] LABS: ALBUMIN SERUM 1.7 g/dL (3.5-5.0); BILIRUBIN,TOTAL 0.6 mg/dL (0.2-2.0); BUN/CREATININE RATIO 13.12; CALCIUM SERUM 7.2 mg/dL (8.4-10.2); CREATININE SERUM 1.6 mg/dL (0.6-1.4); GLOM FILT RATE Estimated 32.6 mL/min (>60); MAGNESIUM 1.9 mg/dL (1.6-3.0); PHOSPHOROUS 2.1 mg/dL (2.5-4.6); PROTEIN TOTAL SERUM 4.8 g/dL (6.0-8.3)
[2017-01-16 06:16] LABS: CALCIUM SERUM 7.3 mg/dL (8.4-10.2); CREATININE SERUM 1.5 mg/dL (0.6-1.4); GLOM FILT RATE Estimated 35.1 mL/min (>60); MAGNESIUM 1.7 mg/dL (1.6-3.0); PHOSPHOROUS 2.6 mg/dL (2.5-4.6); POTASSIUM 3.7 mmol/L (3.5-5.1)
[2017-01-16 07:49] LABS: BASOPHIL% 0.3 % (0-2.5); EOSINOPHIL# 0.1 X10e3 (0-0.7); HEMATOCRIT 28.8 % (35.0-45.0); HEMOGLOBIN 9.6 gm/dL (12.0-16.0); LYMPHOCYTE# 0.6 X10e3 (1.0-3.5); LYMPHOCYTE% 10.6 % (17.0-45.0); MEAN CELL VOLUME 96.3 FL (83-96); MEAN CORPUSCULAR HEMOGLOBIN 32.3 PG (28-34); MEAN CORPUSCULAR HGB CONC 33.5 g/dL (30-36); MEAN PLATELET VOLUME 10.1 FL (6.5-11.5); MONOCYTE# 0.3 X10e3 (0-1.0); MONOCYTE% 6.3 % (3.0-12.0); NEUTROPHIL# 4.4 X10e3 (1.5-7.1); NEUTROPHIL% 80.8 % (40-75); PLATELET COUNT 68 X10e3 (140-420); RED BLOOD COUNT 2.99 X10e (3.90-5.30); RED CELL DISTRIBUTION WIDTH 20.4 % (11.0-15.5); WHITE BLOOD COUNT 5.5 X10e3 (4.0-10.5)
[2017-01-16 07:50] LABS: DIFF IND NO
[2017-01-16 10:32] LABS: ARTERIAL BLOOD GAS ART SITE RIGHT RADIAL; ARTERIAL DRAW? YES
== END 2017-01-16 20:35 | DRG 871 ==
LOC: CED 14:28 → CEDOF 18:29 → CICCU3 21:46 → C3A PCU 01-15 19:46
PROVIDERS: Emergency Medicine; Internal Medicine; Internal Medicine Nephrology; Surgery
PROC: B246YZZ Ultrasonography of Right and Left Heart using Other Contrast (ICD-10-PCS; 2017-01-12 11:30)
PROC: 30233N1 Transfusion of Nonautologous Red Blood Cells into Peripheral Vein, Percutaneous Approach (ICD-10-PCS; principal; 2017-01-13)
DX: A41.9 Sepsis, unspecified organism (principal); J18.9 Pneumonia, unspecified organism; R65.21 Severe sepsis with septic shock; N17.9 Acute kidney failure, unspecified; G92 Toxic encephalopathy; D69.6 Thrombocytopenia, unspecified; E87.0 Hyperosmolality and hypernatremia; F03.90 Unspecified dementia, unspecified severity, without behavioral disturbance, psychotic disturbance, mood disturbance, and anxiety; E44.1 Mild protein-calorie malnutrition; N39.0 Urinary tract infection, site not specified; E87.5 Hyperkalemia; K21.9 Gastro-esophageal reflux disease without esophagitis; Z98.49 Cataract extraction status, unspecified eye; Z90.5 Acquired absence of kidney; I12.9 Hypertensive chronic kidney disease with stage 1 through stage 4 chronic kidney disease, or unspecified chronic kidney disease; N18.3 Chronic kidney disease, stage 3 (moderate); R68.0 Hypothermia, not associated with low environmental temperature; F32.9 Major depressive disorder, single episode, unspecified; Z86.73 Personal history of transient ischemic attack (TIA), and cerebral infarction without residual deficits; Z79.82 Long term (current) use of aspirin; Z82.3 Family history of stroke; Z87.891 Personal history of nicotine dependence; Z68.20 Body mass index [BMI] 20.0-20.9, adult; Z66 Do not resuscitate; K44.9 Diaphragmatic hernia without obstruction or gangrene
CPT/HCPCS: 36556; 36600; 51702; 70450; 71010; 71250; 74176; 76770; 80048; 80053; 80076; 80202; 81003; 82274; 82533; 82550; 82553; 82803; 82947; 83605; 83735; 83935; 84100; 84300; 84443; 84484; 85025; 85610; 85730; 86850; 86900; 86901; 86923; 87040; 87086; 87493; 87804; 93005; 93306; 93971; 94640; 94760; 96360; 96361; 99291; C9113; J0610; J0696; J1450; J1815; J2270; J2370; J2543; J3370; J3475; J3490; J7060; P9016